=== PATIENT | male | born 1980 | race Caucasian/White ===

== ENCOUNTER 2017-04-30 11:10 | Emergency (ER) | payer SELFPAY ==
--- NOTE | 2017-04-30 11:41 | EDPHYS ---
Physician Documentation [facility] Name: Dany Sanchez Age: 36 yrs Sex: Male : 1980 Arrival Date: 04/30/2017 Time: 11:13 Bed 20 Private MD: ED Physician Mohan Sorto HPI: 04/30 11:36 This 36 yrs old Male presents to ER via Ambulatory with complaints of kb Toothache. 11:36 The patient presents with pain, redness, swelling. The problem is located in the lower kb right third molar (#32) and lower right second molar (#31) and right jaw. Onset: The symptoms/episode began/occurred a few weeks ago. Duration: The symptoms are continuous. Modifying factors: The symptoms are alleviated by nothing, the symptoms are aggravated by nothing. Associated signs and symptoms: Pertinent positives: pain, redness in area, swelling, Pertinent negatives: anorexia, chills, dysphagia, fever, inability to eat, nausea, vomiting. Severity of symptoms: At their worst the symptoms were mild, moderate, in the emergency department the symptoms are unchanged. The patient has not experienced similar symptoms in the past. The patient has not recently seen a physician. Pt states "I've had a toothache and swelling for a few weeks and I can't get into the dentist for a few more weeks. I need something for this." Pt does not have appt with dentist yet. Historical: - Allergies: 11:25 No Known Allergies; aj1 - Home Meds: 11:25 metformin 500 mg Oral TG24 2 times per day [Active]; aj1 - PMHx: 11:25 Diabetes - NIDDM; aj1 - PSHx: 11:25 None; aj1 - Immunization history:: Flu vaccine is not up to date. - Social history:: Smoking status: Patient uses tobacco products, smokes one-half pack cigarettes per day. ROS: 11:33 Constitutional: Negative for fever, chills, and weight loss, Cardiovascular: Negative kb for chest pain, palpitations, and edema, Respiratory: Negative for shortness of breath, cough, wheezing, and pleuritic chest pain, Abdomen/GI: Negative for abdominal pain, nausea, vomiting, diarrhea, and constipation, MS/Extremity: Negative for injury and deformity, Skin: Negative for injury, rash, and discoloration, Neuro: Negative for headache, weakness, numbness, tingling, and seizure. 11:33 ENT: Positive for Gum pain Teeth pain Exam: 11:33 Constitutional: This is a well developed, well nourished patient who is awake, alert, kb and in no acute distress. Head/Face: Normocephalic, atraumatic. Chest/axilla: Normal chest wall appearance and motion. Nontender with no deformity. No lesions are appreciated. Cardiovascular: Regular rate and rhythm with a normal S1 and S2. No gallops, murmurs, or rubs. Normal PMI, no JVD. No pulse deficits. Respiratory: Lungs have equal breath sounds bilaterally, clear to auscultation and percussion. No rales, rhonchi or wheezes noted. No increased work of breathing, no retractions or nasal flaring. Abdomen/GI: Soft, non-tender, with normal bowel sounds. No distension or tympany. No guarding or rebound. No evidence of tenderness throughout. Skin: Warm, dry with normal turgor. Normal color with no rashes, no lesions, and no evidence of cellulitis. MS/ Extremity: Pulses equal, no cyanosis. Neurovascular intact. Full, normal range of motion. Neuro: Awake and alert, GCS 15, oriented to person, place, time, and situation. Cranial nerves II-XII grossly intact. Motor strength 5/5 in all extremities. Sensory grossly intact. Cerebellar exam normal. Normal gait. 11:33 ENT: Dental exam: cellulitis, that is moderate, specifically in the lower right second molar (#31) and lower right third molar (#32). Vital Signs: 11:25 BP 129 / 85; Pulse 93; Resp 18; Temp 97.3; Pulse Ox 97% on R/A; Weight 92.99 kg; Height aj1 5 ft. 11 in. (180.34 cm); Pain 9/10; 12:00 BP 121 / 81; Pulse 85; Resp 18; Pulse Ox 100% on R/A; aj1 11:25 Body Mass Index 28.59 (92.99 kg, 180.34 cm) aj1 MDM: 11:28 Patient medically screened. kb 11:33 Data reviewed: vital signs, nurses notes. Data interpreted: Pulse oximetry: on room air kb is 97 %. Interpretation: normal. 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 Administered Medications: 11:43 Drug: Augmentin 875 mg Route: PO; jl7 12:03 Follow up: Response: No adverse reaction aj1 Disposition: 05/01 10:39 Co-signature as Attending Physician, Mohan Sorto MD I agree with the assessment and xenia plan of care. Disposition: 04/30/17 11:40 Discharged to Home. Impression: Inflammatory conditions of jaws. - Condition is Stable. - Discharge Instructions: Dental Abscess, Dental Pain, [id number]. - Prescriptions for Augmentin 875- 125 mg Oral Tablet - take 1 tablet by ORAL route every 12 hours for 7 days; 14 tablet. - Medication Reconciliation Form, Thank You Letter, Antibiotic Education, Prescription Opioid Use form. - Follow up: Emergency Department; When: As needed; Reason: Worsening of condition. Follow up: Private Physician; When: 2 - 3 days; Reason: Recheck today's complaints, Continuance of care, Re-evaluation by your physician. Signatures: Aaliyah Sandhu, SENIOR PROJECT COORDINATOR-C SENIOR PROJECT COORDINATOR-Dania Johnson, RN RN aj1 Mohan Sorto MD MD cha Leal, Jahala RN RN jl7
--- NOTE | 2017-04-30 11:41 | ER ---
Nurse's Notes [facility] Name: Dany Sanchez Age: 36 yrs Sex: Male : 1980 Arrival Date: 04/30/2017 Time: 11:13 Bed 20 Private MD: Diagnosis: Inflammatory conditions of jaws Presentation: 04/30 11:22 Presenting complaint: Patient states: "Ora had a toothache for the past couple weeks aj1 and I can't get into the dentist for 2 more weeks because they're all booked up. The pain goes up to my jaw and ear I've taken BC powder, nothing helps" Swelling noted to right cheek. Patient denies fever, chills. Transition of care: patient was not received from another setting of care. Onset of symptoms was April 16, 2017. Care prior to arrival: None. 11:22 Method Of Arrival: Ambulatory aj1 11:22 Acuity: DARIN 4 aj1 Triage Assessment: 11:25 General: Appears in no apparent distress. uncomfortable, Behavior is calm, cooperative, aj1 appropriate for age. Pain: Complains of pain in right jaw Pain radiates to right ear Pain currently is 9 out of 10 on a pain scale. Quality of pain is described as sharp, shooting, stabbing, Pain began 2 weeks ago Is continuous, Alleviated by nothing. EENT: Reports pain in right jaw. Historical: - Allergies: 11:25 No Known Allergies; aj1 - Home Meds: 11:25 metformin 500 mg Oral TG24 2 times per day [Active]; aj1 - PMHx: 11:25 Diabetes - NIDDM; aj1 - PSHx: 11:25 None; aj1 - Immunization history:: Flu vaccine is not up to date. - Social history:: Smoking status: Patient uses tobacco products, smokes one-half pack cigarettes per day. Screenin:30 Abuse screen: Denies threats or abuse. Denies injuries from another. Nutritional aj1 screening: No deficits noted. Tuberculosis screening: No symptoms or risk factors identified. Fall Risk None identified. Assessment: 11:30 General: Appears in no apparent distress. uncomfortable, Behavior is calm, cooperative, aj1 appropriate for age. Pain: Complains of pain in right jaw Pain does not radiate. Pain currently is 9 out of 10 on a pain scale. Neuro: Level of Consciousness is awake, alert, obeys commands, Oriented to person, place, time, situation, Speech is normal. Cardiovascular: Patient's skin is warm and dry. Respiratory: Airway is patent Respiratory effort is even, unlabored, Respiratory pattern is regular, symmetrical. GI: No signs and/or symptoms were reported involving the gastrointestinal system. : No signs and/or symptoms were reported regarding the genitourinary system. EENT: No signs and/or symptoms were reported regarding the EENT system. Derm: No signs and/or symptoms reported regarding the dermatologic system. Skin is pink, warm \\T\\ dry. normal. Musculoskeletal: No signs and/or symptoms reported regarding the musculoskeletal system. Circulation, motion, and sensation intact. Vital Signs: 11:25 BP 129 / 85; Pulse 93; Resp 18; Temp 97.3; Pulse Ox 97% on R/A; Weight 92.99 kg; Height aj1 5 ft. 11 in. (180.34 cm); Pain 9/10; 12:00 BP 121 / 81; Pulse 85; Resp 18; Pulse Ox 100% on R/A; aj1 11:25 Body Mass Index 28.59 (92.99 kg, 180.34 cm) aj1 ED Course: 11:13 Patient arrived in ED. mr 11:18 Dania Xie, RN is Primary Nurse. aj1 11:23 Triage completed. aj1 11:25 Arm band placed on. aj1 11:28 Aaliyah Sandhu FNP-C [facility]. kb 11:28 Mohan Sorto MD is Attending Physician. kb 11:30 Patient has correct armband on for positive identification. aj1 11:30 No provider procedures requiring assistance completed. Patient did not have IV access aj1 during this emergency room visit. Administered Medications: 11:43 Drug: Augmentin 875 mg Route: PO; jl7 12:03 Follow up: Response: No adverse reaction aj1 Outcome: 11:40 Discharge ordered by . kb 12:02 Discharged to home ambulatory. aj1 12:02 Condition: good 12:02 Discharge instructions given to patient, Instructed on discharge instructions, follow up and referral plans. medication usage, Demonstrated understanding of instructions, follow-up care, medications, Prescriptions given X 2. 12:03 Patient left the ED. aj1 Signatures: Aaliyah Sandhu FNP-C RESEARCH MANUFACTURING OPERATOR-Dania Johnson, RN RN aj1 Simin Melendez mr Eduardo Foster, RN RN jl7
[2017-04-30] MEDS ORDERED: AMOX/K CLAV 875 MG TAB ONE (12:00)
[2017-04-30 12:07] VITALS: TEMP 97.3
[2017-04-30 12:09] VITALS: BP 121/81; O2SAT 100
== END 2017-04-30 12:03 | disposition home or self-care (01) ==
LOC: ER 11:10
DX: M27.2 Inflammatory conditions of jaws (principal); E11.9 Type 2 diabetes mellitus without complications; F17.210 Nicotine dependence, cigarettes, uncomplicated
CPT/HCPCS: 99283

== ENCOUNTER 2017-05-10 13:22 | Observation (INO) | payer SELFPAY ==
[2017-05-10] MEDS ORDERED: MORPHINE 4 MG/ML SYR ONE (14:49)
[2017-05-10] MEDS ORDERED: ONDANSETRON 4 MG/2 ML VIAL ONE (14:49)
[2017-05-10] MEDS ORDERED: VANCOMYCIN/NS 1 gm 1 GM/250 ML BAG ONE (14:49)
[2017-05-10] MEDS ORDERED: PIPER/TAZO/NS 3.375gm 3.375 GM/100 ML BAG ONE (14:50)
[2017-05-10] MEDS ORDERED: NA CHLORIDE 0.9% 1,000 ML ONE (14:50)
[2017-05-10 15:22] LABS: Absolute Lymphocytes (CBC) 1.9 K/uL (0.7-4.9); Absolute Monocytes 0.8 K/uL (0.1-1.3); Basophils % 0.6 % (0-1.3); Eosinophils % 2.4 % (0-4.4); Hematocrit 45.5 % (39.6-49.0); Lymphocytes % 17.4 % (15.3-44.8); MCH 30.8 pg (27.0-35.0); MCV 91.1 fL (80-100); MPV 9.2 fL (7.6-11.3); Monocytes % 6.9 % (3.3-12.3); RBC Red Blood Cell Count 4.99 M/uL (4.33-5.43)
--- NOTE | 2017-05-10 15:44 | EDPHYS ---
Physician Documentation [facility] Name: Dany Sanchez Age: 36 yrs Sex: Male : 1980 Arrival Date: 05/10/2017 Time: 13:24 Bed 28 Private MD: ED Physician Mohan Sorto HPI: 05/10 14:16 This 36 yrs old Male presents to ER via Ambulatory with complaints of Boil. xenia 14:16 The patient presents with an abscess of the left axilla. The patient presents with xenia cellulitis of the left axilla. Description: The affected area is small, moderate sized. Onset: The symptoms/episode began/occurred 2 day(s) ago. Possible cause(s): unknown. Associated signs and symptoms: Pertinent positives: erythema, swelling. Modifying factors: the symptoms are alleviated by remaining still, the symptoms are aggravated by pressure. Severity of symptoms: At their worst the symptoms were moderate. The patient has experienced similar episodes in the past, a few times. Historical: - Allergies: 13:44 No Known Allergies; hb - Home Meds: 13:44 metformin 500 mg Oral TG24 2 times per day [Active]; hb - PMHx: 13:44 Diabetes - NIDDM; hb - PSHx: 13:44 None; hb - Immunization history:: Adult Immunizations up to date. - Social history:: Smoking status: Patient uses tobacco products, smokes one-half pack cigarettes per day. - Family history:: not pertinent. ROS: 14:16 Constitutional: Negative for fever, chills, and weight loss, Eyes: Negative for injury, xenia pain, redness, and discharge, ENT: Negative for injury, pain, and discharge, Neck: Negative for injury, pain, and swelling, Cardiovascular: Negative for chest pain, palpitations, and edema, Respiratory: Negative for shortness of breath, cough, wheezing, and pleuritic chest pain, Abdomen/GI: Negative for abdominal pain, nausea, vomiting, diarrhea, and constipation, Back: Negative for injury and pain, : Negative for injury, bleeding, discharge, and swelling, MS/Extremity: Negative for injury and deformity, Neuro: Negative for headache, weakness, numbness, tingling, and seizure, Psych: Negative for depression, anxiety, suicide ideation, homicidal ideation, and hallucinations, Allergy/Immunology: Negative for hives, rash, and allergies, Endocrine: Negative for neck swelling, polydipsia, polyuria, polyphagia, and marked weight changes, Hematologic/Lymphatic: Negative for swollen nodes, abnormal bleeding, and unusual bruising. 14:16 Skin: Positive for abscess, cellulitis, of the left axilla. Exam: 14:16 Constitutional: This is a well developed, well nourished patient who is awake, alert, xenia and in no acute distress. Head/Face: Normocephalic, atraumatic. Eyes: Pupils equal round and reactive to light, extra-ocular motions intact. Lids and lashes normal. Conjunctiva and sclera are non-icteric and not injected. Cornea within normal limits. Periorbital areas with no swelling, redness, or edema. ENT: Nares patent. No nasal discharge, no septal abnormalities noted. Tympanic membranes are normal and external auditory canals are clear. Oropharynx with no redness, swelling, or masses, exudates, or evidence of obstruction, uvula midline. Mucous membranes moist. Neck: Trachea midline, no thyromegaly or masses palpated, and no cervical lymphadenopathy. Supple, full range of motion without nuchal rigidity, or vertebral point tenderness. No Meningismus. Chest/axilla: Normal chest wall appearance and motion. Nontender with no deformity. No lesions are appreciated. Cardiovascular: Regular rate and rhythm with a normal S1 and S2. No gallops, murmurs, or rubs. Normal PMI, no JVD. No pulse deficits. Respiratory: Lungs have equal breath sounds bilaterally, clear to auscultation and percussion. No rales, rhonchi or wheezes noted. No increased work of breathing, no retractions or nasal flaring. Abdomen/GI: Soft, non-tender, with normal bowel sounds. No distension or tympany. No guarding or rebound. No evidence of tenderness throughout. Back: No spinal tenderness. No costovertebral tenderness. Full range of motion. Male : Normal genitalia with no discharge or lesions. Skin: Warm, dry with normal turgor. Normal color with no rashes, no lesions, and no evidence of cellulitis. Neuro: Awake and alert, GCS 15, oriented to person, place, time, and situation. Cranial nerves II-XII grossly intact. Motor strength 5/5 in all extremities. Sensory grossly intact. Cerebellar exam normal. Normal gait. Psych: Awake, alert, with orientation to person, place and time. Behavior, mood, and affect are within normal limits. 14:16 Musculoskeletal/extremity: ROM: full passive range of motion, limited active range of motion, Circulation is intact in all extremities. Sensation intact. Compartment Syndrome exam of affected extremity: is normal. DVT Exam: negative Homans' sign noted on exam, no appreciated bluish discoloration, pain, swelling, tenderness, erythema, increased warmth, that is moderate, of the left axilla. Vital Signs: 13:43 BP 126 / 75; Pulse 99; Resp 18; Temp 99.4; Pulse Ox 100% on R/A; Weight 93.44 kg; hb Height 5 ft. 11 in. (180.34 cm); Pain 7/10; 15:00 BP 122 / 82; Pulse 85; Resp 15; Pulse Ox 100% on R/A; lk1 16:00 BP 120 / 82; Pulse 71; Resp 16; Pulse Ox 100% on R/A; lk1 17:00 BP 129 / 62; Pulse 77; Resp 15; Pulse Ox 100% on R/A; lk1 13:43 Body Mass Index 28.73 (93.44 kg, 180.34 cm) hb MDM: 14:01 Patient medically screened. [facility] 14:19 Data reviewed: vital signs, nurses notes, lab test result(s), radiologic studies, xenia ultrasound. 05/10 14:15 Order name: CBC with Diff [facility] 05/10 14:15 Order name: Comprehensive Metabolic Panel [facility] 05/10 14:24 Order name: CBC with Automated Diff; Complete Time: 15:38 [facility] 05/10 14:24 Order name: Comprehensive Metabolic Panel; Complete Time: 16:41 [facility] 05/10 16:08 Order name: Basic Metabolic Panel [facility] 05/10 16:08 Order name: Basic Metabolic Panel [facility] 05/10 16:08 Order name: Basic Metabolic Panel [facility] 05/10 16:08 Order name: Basic Metabolic Panel [facility] 05/10 16:08 Order name: CBC with Automated Diff [facility] 05/10 16:08 Order name: CBC with Automated Diff [facility] 05/10 16:08 Order name: CBC with Automated Diff [facility] 05/10 16:08 Order name: CBC with Automated Diff [facility] 05/10 16:09 Order name: Blood Culture [facility] 05/10 14:24 Order name: Extremity Nonvascular Limited [facility] 05/10 15:28 Order name: Labs - recollect needed; Complete Time: 15:50 ss 05/10 15:47 Order name: CONS Physician Consult ED[facility] 05/10 16:08 Order name: CONS Pharmacy Consult ED[facility] 05/10 16:08 Order name: NPO ED[facility] 05/10 17:16 Order name: Diet Regular; Complete Time: 17:17 bd Administered Medications: 15:10 Drug: Zofran 4 mg Route: IVP; Site: left antecubital; lk1 15:40 Follow up: Response: No adverse reaction; Marked relief of symptoms; Nausea is decreasedlk1 15:10 Drug: NS 0.9% 1000 ml Route: IV; Rate: 1 bolus; Site: left antecubital; lk1 16:00 Follow up: Response: No adverse reaction; IV Status: Completed infusion lk1 15:12 Drug: morphine 2 mg Route: IVP; Site: left antecubital; lk1 15:40 Follow up: Response: No adverse reaction; Marked relief of symptoms; Pain is decreased lk1 15:14 Drug: Zosyn 3.375 grams Route: IVPB; Infused Over: 60 mins; Site: left antecubital; lk1 16:10 Follow up: Response: No adverse reaction; IV Status: Completed infusion lk1 15:41 Drug: vancoMYCIN 1 grams Route: IVPB; Infused Over: 2 hrs; Site: left antecubital; lk1 18:08 Follow up: Response: No adverse reaction; IV Status: Infusion continued upon admission lk1 Disposition: 05/10/17 15:44 Hospitalization ordered by Karishma Collier for Observation. Preliminary diagnosis are Cutaneous abscess of left axilla, Type 2 diabetes mellitus, Fever, unspecified. - Bed requested for Telemetry/MedSurg (observation). - Status is Observation. lk1 - Condition is Stable. - Problem is new. - Symptoms have improved. UTI on Admission? No Signatures: Dispatcher [employer] [facility] Mary Ann Francis Corey, MD MD cha Smirch, Shelby, RN RN ss Yessy Pedroza RN RN lk1 Ashley Shah RN RN Corrections: (The following items were deleted from the chart) 16:07 16:04 Extrmty Nonvasular Limited+US.RAD.BRZ ordered. EDMS EDMS
--- NOTE | 2017-05-10 15:44 | ER ---
Nurse's Notes [facility] Name: Dany Sanchez Age: 36 yrs Sex: Male : 1980 Arrival Date: 05/10/2017 Time: 13:24 Bed 28 Private MD: Diagnosis: Cutaneous abscess of left axilla;Type 2 diabetes mellitus;Fever, unspecified Presentation: 05/10 13:42 Presenting complaint: Patient states: Painful boil under left arm x 1 week. Transition hb of care: patient was not received from another setting of care. Onset of symptoms is unknown. Care prior to arrival: None. 13:42 Method Of Arrival: Ambulatory hb 13:42 Acuity: DARIN 3 hb Historical: - Allergies: 13:44 No Known Allergies; hb - Home Meds: 13:44 metformin 500 mg Oral TG24 2 times per day [Active]; hb - PMHx: 13:44 Diabetes - NIDDM; hb - PSHx: 13:44 None; hb - Immunization history:: Adult Immunizations up to date. - Social history:: Smoking status: Patient uses tobacco products, smokes one-half pack cigarettes per day. - Family history:: not pertinent. Screenin:50 Abuse screen: Denies threats or abuse. Denies injuries from another. Nutritional lk1 screening: No deficits noted. Tuberculosis screening: No symptoms or risk factors identified. Fall Risk None identified. Assessment: 15:00 General: Appears in no apparent distress. Behavior is calm, cooperative, appropriate lk1 for age. Pain: Complains of pain in left axilla Pain currently is 7 out of 10 on a pain scale. Neuro: Level of Consciousness is awake, alert, obeys commands, Oriented to person, place, time, situation. Cardiovascular: Capillary refill is brisk Patient's skin is warm and dry. Respiratory: Airway is patent Respiratory effort is even, unlabored, Respiratory pattern is regular, symmetrical. GI: Abdomen is non-distended. : No signs and/or symptoms were reported regarding the genitourinary system. EENT: No signs and/or symptoms were reported regarding the EENT system. Derm: Skin is pink, warm \T\ dry. Wound noted left axilla Wound is redness and swelling noted to left axilla with no central point seen. No drainage noted. Musculoskeletal: No signs and/or symptoms reported regarding the musculoskeletal system. Vital Signs: 13:43 BP 126 / 75; Pulse 99; Resp 18; Temp 99.4; Pulse Ox 100% on R/A; Weight 93.44 kg; hb Height 5 ft. 11 in. (180.34 cm); Pain 7/10; 15:00 BP 122 / 82; Pulse 85; Resp 15; Pulse Ox 100% on R/A; lk1 16:00 BP 120 / 82; Pulse 71; Resp 16; Pulse Ox 100% on R/A; lk1 17:00 BP 129 / 62; Pulse 77; Resp 15; Pulse Ox 100% on R/A; lk1 13:43 Body Mass Index 28.73 (93.44 kg, 180.34 cm) hb ED Course: 13:24 Patient arrived in ED. as 13:43 Triage completed. hb 13:44 Arm band placed on right wrist. hb 14:01 Mohan Sorto MD is Attending Physician. xenia 14:16 Yessy Pedroza, BERTIN is Primary Nurse. lk1 14:32 Patient taken to ultrasound. via wheelchair. hr 14:42 Extremity Nonvascular Limited In Process Unspecified. EDMS 15:00 Patient has correct armband on for positive identification. Bed in low position. Call lk1 light in reach. Adult w/ patient. 15:09 Initial lab(s) drawn, by me, sent to lab. Missed attempt(s): 20 gauge in right dh3 antecubital area. Bleeding controlled, band aid applied, catheter tip intact. Missed attempt(s): 20 gauge in right antecubital area. Bleeding controlled, band aid applied, catheter tip intact. 15:23 First set of blood cultures drawn by venipuncture 23G to left hand by me. 3 15:42 Karishma Collier MD is Hospitalizing Provider. xenia 17:40 Second set of blood cultures drawn. lk1 18:12 No provider procedures requiring assistance completed. Patient admitted, IV remains in lk1 place. Administered Medications: 15:10 Drug: Zofran 4 mg Route: IVP; Site: left antecubital; lk1 15:40 Follow up: Response: No adverse reaction; Marked relief of symptoms; Nausea is decreasedlk1 15:10 Drug: NS 0.9% 1000 ml Route: IV; Rate: 1 bolus; Site: left antecubital; lk1 16:00 Follow up: Response: No adverse reaction; IV Status: Completed infusion lk1 15:12 Drug: morphine 2 mg Route: IVP; Site: left antecubital; lk1 15:40 Follow up: Response: No adverse reaction; Marked relief of symptoms; Pain is decreased lk1 15:14 Drug: Zosyn 3.375 grams Route: IVPB; Infused Over: 60 mins; Site: left antecubital; lk1 16:10 Follow up: Response: No adverse reaction; IV Status: Completed infusion lk1 15:41 Drug: vancoMYCIN 1 grams Route: IVPB; Infused Over: 2 hrs; Site: left antecubital; lk1 18:08 Follow up: Response: No adverse reaction; IV Status: Infusion continued upon admission lk1 Outcome: 15:44 Decision to Hospitalize by Provider. [facility] 18:11 Admitted to Med/surg accompanied by tech, via wheelchair, room 219, with chart. [facility] 18:11 Condition: stable 18:11 Discharge instructions given to patient, Instructed on the need for admit, Demonstrated understanding of instructions. 18:13 Patient left the ED. 1 Signatures: Dispatcher [employer] EDMS Mohan Sorto MD MD cha Rod, Haley hr Martinez, Amelia as Kluge, Leah, RN RN [facility] Ashley Shah RN RN Agnes Patton 3 Corrections: (The following items were deleted from the chart) 15:18 13:14 Zosyn 3.375 grams IVPB in left antecubital over 60 mins [facility] lk1 15:19 13:12 morphine 2 mg IVP in left antecubital [place] [address] 15:20 13:10 NS 0.9% 1000 ml IV at 1 bolus in left antecubital [place] [address] 15:20 13:10 Zofran 4 mg IVP in left antecubital [place] [address]
[2017-05-10 15:50] LABS: Potassium 4.3 mEq/L (3.6-5.0)
[2017-05-10 15:54] LABS: Albumin 3.8 g/dL (3.2-5.5); Bilirubin Total 0.4 mg/dL (0.3-1.2); Protein, Total 6.7 g/dL (6.0-8.3)
[2017-05-10] MEDS ORDERED: ACETAMINOPHEN 500 MG TAB PO PRN (16:04)
[2017-05-10] MEDS ORDERED: ONDANSETRON 4 MG/2 ML VIAL IV PRN (16:04)
[2017-05-10] MEDS ORDERED: HYDROCODONE/APAP 7.5/325 MG TAB PO PRN (16:04)
[2017-05-10] MEDS: PIPER/TAZO/NS 3.375gm 3.375 GM/100 ML BAG IVPB SCH (17:00)
[2017-05-10] MEDS ORDERED: D50W 25 GM/50 ML SYRINGE IV PRN (17:03)
[2017-05-10] MEDS ORDERED: GLUCAGON 1 MG/VIAL IM PRN (17:03)
--- NOTE | 2017-05-10 17:36 | RAD REPORT ---
EXAM DESCRIPTION: US - Extremity Nonvascular Limited - 05/10/2017 2:42 pm CLINICAL HISTORY: Left axillary mass COMPARISON: None FINDINGS: A 3.6 x 1.9 x 2.7 centimeter fluid collection is present within the left axilla. IMPRESSION: 3.6 centimeter fluid collection within the left axilla may represent an abscess
[2017-05-10 19:02] VITALS: BMI 28.7
[2017-05-10] MEDS: VANCOMYCIN/NS 1 gm 1 GM/250 ML BAG IV SCH (19:37)
[2017-05-10] MEDS: NA CHLORIDE 0.9% 1,000 ML IV SCH (19:44)
[2017-05-10] MEDS: INSULIN -REGULAR HUMAN 50 UNIT/0.5 ML ML SQ SCH (20:39)
[2017-05-10] MEDS ORDERED: INFLUENZA VACCINE (for 3y+) 0.5 ML DOSE IMVAC ONE (21:00)
[2017-05-10 22:06] LABS: Urine Appearance CLEAR; Urine Bilirubin NEGATIVE (NEG); Urine Blood NEGATIVE (NEG); Urine Color YELLOW; Urine Glucose 3+ (NEG); Urine Protein NEGATIVE (NEG); Urine Specific Gravity >=1.030 (1.005-1.030); Urine pH 6.5 (5.0-7.0)
[2017-05-10 22:07] LABS: Urine Microscopic Reflex NO UMIC
[2017-05-10 22:39] VITALS: O2SAT 100
[2017-05-11] MEDS: PIPER/TAZO/NS 3.375gm 3.375 GM/100 ML BAG IVPB SCH ×2 (01:02→11:49)
[2017-05-11] MEDS: NA CHLORIDE 0.9% 1,000 ML IV SCH (03:34)
--- NOTE | 2017-05-11 04:22 | HP ---
Date of Admission: 05/10/2017 Code Status: Full. Chief Complaint: Abscess on the left axilla. Consultants: Dr. Smith, General Surgery. History Of Present Illness: The patient is a 36-year-old male with past medical history of diabetes, who has been noncompliant with his medications, who comes in with recurrent abscess underneath his l eft axilla. He reports swelling and pain; however, no drainage over the past few days. Denies any i nsect bites, cuts, or other trauma. The patient has had previous surgery at that site in [place] . The patient's symptoms are constant, moderate, and progressively worsening. The patient denies an y fevers or chills. The patient also reports recent boil on his right groin that has been oozing. O f note, the patient has not been on his metformin for over a week. He did borrow some of his friend' s metformin. He states that his blood sugars run around the 150s. The patient came into the ER for further evaluation. His workup revealed a blood glucose level of 183. His white count was 11. The patient was then referred for admission for axilla abscess. Dr. Smith was consulted by the ER. Past Medical History: Diabetes. Past Surgical History: Left axilla abscess drainage. Allergies: NO KNOWN DRUG ALLERGIES. Medications: Currently not taking any medications, has been on metformin in the past. Social History: The patient smokes 1 pack per day, has been smoking for the past several years. Drde nks alcohol socially. No illicit drug use. Family History: Positive for diabetes in the grandmother and uncle. Review of Systems: An 11-point system reviewed, negative except as per HPI. Physical Examination: Vital Signs: Temperature 99.4, heart rate 99, blood pressure 126/75, respirations 18, O2 100% on ramona m air. General: Awake, alert, oriented x3, not in any acute distress. HEENT: Normocephalic, atraumatic. PERRLA. EOMI. Moist mucous membranes. Oropharynx is clear. Co njunctivae anicteric. Neck: Supple. No JVD. Trachea midline. CV: S1, S2. No murmurs. Regular rate and rhythm. Peripheral pulses are present bilaterally. Respiratory: Clear to auscultation bilaterally. No wheezing. No stridor. No use of accessory musc les. Gastrointestinal: Abdomen is soft, nontender, nondistended. Positive bowel sounds. No guarding or rigidity. Extremities: No clubbing, cyanosis, or edema. No calf tenderness. Skin: The patient has tender mobile induration in the left axilla. No apparent drainage. Healed raymond rgical scar is present. Neuro: Cranial nerves 2 through 12 intact grossly. No focal neurological deficit. Strength is 5/5 in bilateral upper and lower extremities. Sensation is intact to light touch. Psych: Mood is okay. Affect is full. Insight and judgment are good. Laboratory Data: WBC 11, H and H 15.4 and 45.5, platelets 196, neutrophils 72.7%. Sodium 139, potas sium 4.3, chloride 103, CO2 29, BUN 12, creatinine 0.94, glucose 183, calcium 9.2. Upper extremity u ltrasound pending. Assessment And Plan: A 36-year-old male with; 1.Left axilla abscess. We will continue on broad-spectrum IV antibiotics. Obtain blood cultures. Dr. Smith with Surgery has been consulted. We will likely need I and D in a.m. 2.Right groin abscess. We will obtain wound culture and continue IV antibiotics. 3.Diabetes mellitus type 2 with hyperglycemia without long-term use of insulin. We will check hemog lobin A1c. The patient has not been on his metformin. 4.Noncompliance. 5.GI and DVT prophylaxis with PPI and SCDs. No chemical anticoagulation secondary to impending proc edure. 6.Nicotine dependence with cigarette smoking, uncomplicated. Counseled. Plan: Admit the patient to [facility] as observation. DORIS Voice ID: [id number]
[2017-05-11 05:42] LABS: Absolute Monocytes 0.8 K/uL (0.1-1.3); Absolute Neutrophil 5.1 K/uL (1.8-8.0); Basophils % 0.4 % (0-1.3); Eosinophils % 2.3 % (0-4.4); Hematocrit 42.5 % (39.6-49.0); MCH 30.6 pg (27.0-35.0); MCV 93.8 fL (80-100); MPV 8.1 fL (7.6-11.3); Monocytes % 8.9 % (3.3-12.3); RBC Red Blood Cell Count 4.53 M/uL (4.33-5.43)
[2017-05-11 05:52] LABS: BUN Blood Urea Nitrogen 14 mg/dL (6-20); Bicarbonate 29 mEq/L (21-31); Glomerular Filtration Rate > 90 mL/min (=/>90); Glucose Level 141 mg/dL (65-120); Potassium 4.3 mEq/L (3.6-5.0); Sodium Level 141 mEq/L (135-145)
[2017-05-11] MEDS: INSULIN -REGULAR HUMAN 50 UNIT/0.5 ML ML SQ SCH ×2 (07:30→11:30)
[2017-05-11] MEDS ORDERED: BUPIVACAINE 0.5% PF 10 ML VIAL ONE (07:49)
[2017-05-11] MEDS: VANCOMYCIN/NS 1 gm 1 GM/250 ML BAG IV SCH (08:23)
[2017-05-11 09:19] LABS: A1c Component 0.58 mg/dL; Hemoglobin A1c 5.7 % (4-6.0)
[2017-05-11] MEDS ORDERED: MIDAZOLAM HCL 2 MG/2 ML INJ ONE (09:22)
[2017-05-11] MEDS ORDERED: FENTANYL CITR 100 MCG/2 ML ONE ×2 (09:26→09:43)
[2017-05-11] MEDS ORDERED: LIDOCAINE 2% MPF 5 ML VIAL ONE (09:27)
[2017-05-11] MEDS ORDERED: PROPOFOL 200 MG/20 ML VIAL IV ONE (09:27)
--- NOTE | 2017-05-11 09:34 | P.OP ---
Preoperative diagnosis: Abscess Left Axilla Postoperative diagnosis: same Primary procedure: I and D and Debridement Left Axillary Abscess Anesthesia: General Estimated blood loss: min Specimen: pus Findings: as above Complications: None Transferred to: Recovery Room Condition: Good
[2017-05-11] MEDS ORDERED: CHLORHEXIDINE GLUCO 4% 120 ML TOP SCH (10:11)
--- NOTE | 2017-05-11 12:07 | PREOPCON ---
Date of Consultation: 05/10/2017 Reason For Consultation: Infection of left axilla. History Of Present Illness: The patient is a 36-year-old gentleman, who has uncontrollable diabetes and he has had recurrent infections throughout his body. He also had 1 in his left axilla several ye ars ago which was incised and drained. He complaint of swelling and increasing pain in the left axil la. Denies any history of trauma, bites, cut. He does have issues with an ingrown hair. Denies any fever or chills subjectively. No drainage at this time, just increasing pain. He had an ultrasound done, which was confirmed an abscess in his left axilla and I was consulted. Past Medical History: Significant for type 2 diabetes. Past Surgical History: Incision and drainage of a left axillary abscess. Allergies: NO ALLERGIES. Social History: The patient smokes 1 pack per day. Has been smoking for several years. Drinks alco hol occasionally. Family History: Significant for diabetes. Physical Examination: Vital Signs: Stable. He is afebrile. General: He is awake, alert, oriented x3. Head and neck: Cranial nerves 2 through 12 are grossly within normal limits. No neck masses. No JV D. Throat clear. Neck supple. Chest: Clear. Heart: S1 and S2. Abdomen: Soft. Extremities: Neurovascularly intact. Neuro: Nonfocal. Left axilla, there is approximately a 4 x 6 cm area of tender mass, central fluctu ance, and feels fairly deep. Laboratory Data: White count was 11,000 on admission. Chemistry reviewed glucose is 141. Assessment: Left axillary abscess. Recommendations: N.p.o. IV fluid, IV antibiotic, to the OR for incision and drainage, and debridemen t of left axillary abscess. The patient understands the risks, benefits, and alternatives and agrees to procedure. /MODL Voice ID: [id number] Report ID: [id number]
[2017-05-11 17:31] VITALS: BP 140/84; TEMP 98.6
--- NOTE | 2017-05-11 17:32 | PN ---
Date of Progress Note: 05/11/2017 The patient seen and examined. Chart reviewed and case discussed with RN and Dr. Smith. History: The patient tolerated I and D procedure well this morning. No other complaints. Review of Systems: Negative except as above. Medications: Reviewed. Physical Examination: Vital Signs: Temperature 98.6, heart rate 77, blood pressure 111/74, respirations 16, O2 100% on ramona m air. General: Awake, alert, oriented x3. No acute distress. CV: S1, S2. No murmurs. Regular rate and rhythm. Peripheral pulses are present. Respiratory: Clear to auscultation bilaterally. No wheezing. No stridor. No use of accessory musc les. Gastrointestinal: Abdomen is soft, nontender, nondistended. Positive bowel sounds. Extremities: No clubbing, cyanosis, or edema. Neurologic: Nonfocal. Skin: Left axilla bandaged. No erythema or drainage. Laboratory Data: Sodium 141, potassium 4.3, chloride 108, CO2 29, BUN 14, creatinine 0.83, glucose 1 41, calcium 8.7. WBC 9.2. H and H 13.9 and 42.5, platelets 219, neutrophils 55%. Blood cultures pe nding. Wound cultures also pending. Assessment And Plan: A 36-year-old male with: 1.Left axilla abscess. We will continue on broad-spectrum IV antibiotics. Follow up on cultures. The patient is status post I and D. Appreciate Dr. Smith's input. 2.Right groin abscess. Continue antibiotics. Cultures pending. 3.Diabetes mellitus type 2 with hyperglycemia with long-term use of insulin. We will continue slidi ng scale insulin. Hemoglobin A1c is 5.7%. 4.Noncompliance. 5.Nicotine dependence with cigarette smoking, uncomplicated, counseled. 6.Gastrointestinal and deep venous thrombosis prophylaxis with PPI and SCDs due to recent surgery. Plan: Likely discharge in a.m. Follow up on cultures. /SHIRA Voice ID: [id number] Report ID: [id number]
[2017-05-11] MEDS ORDERED: MUPIROCIN 2% OINT 22GM TUBE TOP SCH (21:00)
[2017-05-11] MEDS ORDERED: VANCOMYCIN 1.75 GM in NA CHLORIDE 0.9% 500 ML IVPB SCH (21:00)
--- NOTE | 2017-05-12 02:24 | OP ---
Date of Procedure: 05/11/2017 Surgeon: Jerry Smith MD Preoperative Diagnosis: Left axillary abscess. Postoperative Diagnosis: Left axillary abscess. Procedure: Incision and drainage and debridement of left axillary abscess. Estimated Blood Loss: Minimal. Specimen: Pus. Findings: As above. Anesthesia: General. Complications: None. Disposition: The patient tolerated the procedure well in stable condition and taken to Recovery in g ood general condition. Procedure In Detail: The patient was brought to the OR and placed in supine position. General anest hesia was begun. The patient was prepped and draped in the usual sterile fashion. Marcaine 0.5% was infiltrated locally. Then, a #15 blade was used to make approximately a 3-cm incision. Subcutaneou s tissue divided. Deep to subcutaneous tissue, an abscess identified. Open cultures done. Wound ir rigated. Bleeding controlled with cautery. Necrotic tissue debrided. Wound irrigated again and the n wet-to-dry normal saline dressing change applied. The patient tolerated the procedure in stable condition and taken to Recovery in good gener al condition. /MODL Voice ID: [id number] Report ID: [id number]
--- NOTE | 2017-05-12 15:09 | DS ---
Date of Discharge: 05/11/2017 Technician Automated Equipment: Dr. Smith. Procedure: On 05/11/2017, I and D of left axillary abscess. Admitting Diagnoses: 1.Left axillary abscess. 2.Right groin abscess. 3.Diabetes mellitus type 2 with hyperglycemia without long-term use of insulin. 4.Noncompliance. 5.Nicotine dependence with cigarette smoking, uncomplicated. Discharge Diagnoses: 1.Left axillary abscess status post incision and drainage. 2.Right groin abscess, resolving. 3.Diabetes mellitus type 2 with hyperglycemia without long-term use of insulin. 4.Noncompliance. 5.Nicotine dependence with cigarette smoking, uncomplicated. Hospital Course: The patient is a 36-year-old male, who has not been taking his medications for his diabetes, comes in with abscess of his left axilla. The patient has had previous abscess in the same area drained in the past. The patient reports pain. His white count was mildly elevated. The salazar ent was started on IV antibiotics. Dr. Smith with Surgery was consulted. The patient had an I and D done and tolerated procedure well. The patient was counseled against cigarette smoking. He underst ands it delays healing. He was also counseled on being compliant with his medications. He stated th at he has been out of his medication. Refills were provided for his metformin. The patient's white count improved. His wound cultures were pending. The patient was then cleared for discharge from raymond rgical standpoint. The patient was discharged home in a stable condition. Activity: As tolerated. Medications: As per medication reconciliation list. Followup: Follow up with Dr. Smith, surgeon, next . Return to ER for worsening condition. Establish care with primary care physician. Monitor blood glucose levels. Diet: Diabetic. Discharge Instructions: No driving or operating heavy machinery while on narcotics. For physical exam findings, please see progress note dictated on the day of discharge. SA/MODL Voice ID: [id number] Report ID: [id number]
== END 2017-05-11 16:58 | disposition home or self-care (01) ==
LOC: ER 13:22 → ERHOLD 15:43 → 2ND 17:54
PROVIDERS: ADMIT Family Medicine; ATTEND Family Medicine
PROC: 0J9F0ZZ Drainage of Left Upper Arm Subcutaneous Tissue and Fascia, Open Approach (ICD-10-PCS; principal; 2017-05-11 08:30)
DX: L02.412 Cutaneous abscess of left axilla (principal); L02.214 Cutaneous abscess of groin; E11.65 Type 2 diabetes mellitus with hyperglycemia; Z79.4 Long term (current) use of insulin; Z91.14 Patient's other noncompliance with medication regimen; F17.210 Nicotine dependence, cigarettes, uncomplicated
CPT/HCPCS: 36415; 76882; 80048; 80053; 81003; 82962; 83036; 85025; 87040; 87070; 87075; 87077; 87186; 87205; 94760; 96365; 96366; 96368; 96375; 99285; G0378; J2250; J2405; J2543; J3010; J3370; J7030

== ENCOUNTER 2017-08-01 15:16 | Emergency (ER) | payer SELFPAY ==
--- NOTE | 2017-08-01 15:48 | ER ---
Nurse's Notes [facility] Name: Dany Sanchez Age: 36 yrs Sex: Male : 1980 Arrival Date: 08/01/2017 Time: 15:21 Bed 30 Private MD: None, None Diagnosis: Diabetes mellitus due to underlying condition with hyperglycemia Presentation: 08/01 15:36 Presenting complaint: Patient states: "My blood sugar was like 321 today and I took my aa5 last Metformin pill today so I just need a refill because I'm not from here". Pt denies any symptoms. Transition of care: patient was not received from another setting of care. Onset of symptoms was August 01, 2017. Risk Assessment: Do you want to hurt yourself or someone else? Patient reports no desire to harm self or others. Initial Sepsis Screen: Does the patient meet any 2 criteria? No. Patient's initial sepsis screen is negative. Does the patient have a suspected source of infection? No. Patient's initial sepsis screen is negative. Care prior to arrival: None. 15:36 Method Of Arrival: Ambulatory aa5 15:36 Acuity: DARIN 5 aa5 Triage Assessment: 15:40 General: Appears in no apparent distress. well groomed, well developed, well nourished, rk2 Behavior is calm, cooperative. 15:40 Pain: Denies pain. Neuro: Level of Consciousness is alert, obeys commands, Oriented to rk2 person, place, time, situation. Respiratory: Airway is patent Respiratory effort is even, unlabored, Respiratory pattern is regular, symmetrical. Derm: Skin is pink, warm \\T\\ dry. Historical: - Allergies: 15:38 No Known Allergies; aa5 - Home Meds: 15:38 metformin 500 mg Oral TG24 2 times per day [Active]; aa5 - PMHx: 15:38 Diabetes - NIDDM; aa5 - PSHx: 15:38 None; aa5 - Immunization history:: Adult Immunizations up to date. - Social history:: Smoking status: Patient uses tobacco products, smokes one-half pack cigarettes per day. - Ebola Screening: : No symptoms or risks identified at this time. Screenin:40 Abuse screen: Denies threats or abuse. rk2 15:40 Nutritional screening: No deficits noted. Tuberculosis screening: No symptoms or risk rk2 factors identified. Fall Risk None identified. Vital Signs: 15:38 BP 113 / 86; Pulse 72; Resp 16 S; Temp 97.8(TE); Pulse Ox 97% on R/A; Pain 0/10; aa5 ED Course: 15:21 Patient arrived in ED. sb2 15:21 None, None is Private Physician. sb2 15:28 Mohan Kay PA is PHCP. cp 15:28 Amos Vazquez MD is Attending Physician. cp 15:30 Veena Hayes, RN is Primary Nurse. rk2 15:37 Triage completed. aa5 15:38 Arm band placed on. aa5 15:40 Patient has correct armband on for positive identification. Bed in low position. Call rk2 light in reach. 15:57 No provider procedures requiring assistance completed. Patient did not have IV access rk2 during this emergency room visit. Administered Medications: No medications were administered Point of Care Testing: Blood Glucose: 15:37 Blood Glucose: 144 mg/dL; aa5 Ranges: Outcome: 15:47 Discharge ordered by . cp 15:57 Discharged to home ambulatory. rk2 15:57 Condition: good 15:57 Discharge instructions given to patient, Prescriptions given X 1. 16:01 Patient left the ED. rk2 Signatures: Bella Benson, RN RN aa5 Mohan Kay PA PA cp Veena Hayes, BERTIN RN rk2 Basilia Polk sb2
--- NOTE | 2017-08-01 15:48 | EDPHYS ---
Physician Documentation [facility] Name: Dany Sanchez Age: 36 yrs Sex: Male : 1980 Arrival Date: 08/01/2017 Time: 15:21 Bed 30 Private MD: None, None ED Physician Amos Vazquez HPI: 08/01 15:37 This 36 yrs old Male presents to ER via Unassigned with complaints of High cp Blood Sugar. 15:37 The patient or guardian reports hyperglycemia, that was potentially precipitated by cp eating. Patient reports he was concerned about elevated blood glucose today after eating. Patient reports he has history of NIDDM and take metformin 500 mg twice daily. Took last dose of metformin today. Is a patient at [facility]. Patient reports he called clinic and was told he can be seen tomorrow. No complaints of chest or abdomen pain. Historical: - Allergies: 15:38 No Known Allergies; aa5 - Home Meds: 15:38 metformin 500 mg Oral TG24 2 times per day [Active]; aa5 - PMHx: 15:38 Diabetes - NIDDM; aa5 - PSHx: 15:38 None; aa5 - Immunization history:: Adult Immunizations up to date. - Social history:: Smoking status: Patient uses tobacco products, smokes one-half pack cigarettes per day. - Ebola Screening: : No symptoms or risks identified at this time. ROS: 15:41 Endocrine: Positive for hyperglycemia. cp 15:41 All other systems are negative. Exam: 15:42 Head/Face: Normocephalic, atraumatic. cp 15:42 Constitutional: The patient appears in no acute distress, alert, awake, non-diaphoretic, non-toxic, well developed, well nourished. 15:42 Eyes: Periorbital structures: appear normal, Conjunctiva: normal, no exudate, no injection, Sclera: no appreciated abnormality, Lids and lashes: appear normal, bilaterally. 15:42 ENT: External ear(s): are unremarkable, Nose: is normal, Mouth: Lips: moist, Oral mucosa: pink and intact, moist, Posterior pharynx: is normal, airway is patent, no erythema, no exudate, Voice: is normal. 15:42 Neck: ROM/movement: is normal, is supple, without pain, no range of motions limitations, no nuchal rigidity, Lymph nodes: no appreciated lymphadenopathy. 15:42 Chest/axilla: Inspection: normal, Palpation: is normal, no crepitus, no tenderness. 15:42 Cardiovascular: Rate: normal, Rhythm: regular, Pulses: Edema: is not appreciated. 15:42 Respiratory: the patient does not display signs of respiratory distress, Respirations: normal, no use of accessory muscles, no retractions, no splinting, no tachypnea, labored breathing, is not present, Breath sounds: are clear throughout, no decreased breath sounds, no stridor, no wheezing. 15:42 Abdomen/GI: Inspection: abdomen appears normal, Bowel sounds: active, all quadrants, Palpation: abdomen is soft and non-tender, in all quadrants, rebound tenderness, is not appreciated, voluntary guarding, is not appreciated, involuntary guarding, is not appreciated. 15:42 Back: pain, is absent, ROM is normal. 15:42 Skin: cellulitis, is not appreciated, no rash present. 15:42 Neuro: Orientation: to person, place \T\ time. Mentation: is normal, Cerebellar function: is grossly normal, Motor: moves all fours, strength is normal, Sensation: is normal. Vital Signs: 15:38 BP 113 / 86; Pulse 72; Resp 16 S; Temp 97.8(TE); Pulse Ox 97% on R/A; Pain 0/10; aa5 MDM: 15:33 Patient medically screened. cp 15:35 Differential diagnosis: diabetes insipidus, DKA, hyperglycemia, hyperthyroidism, cp hypoglycemic episode, new onset diabetes. 15:45 Data reviewed: vital signs, nurses notes, lab test result(s), Accu-Check, and as a cp result, I will discharge patient. 15:45 Counseling: I had a detailed discussion with the patient and/or guardian regarding: the cp historical points, exam findings, and any diagnostic results supporting the discharge/admit diagnosis, lab results, the need for outpatient follow up, a family practitioner, to return to the emergency department if symptoms worsen or persist or if there are any questions or concerns that arise at home. Administered Medications: No medications were administered Point of Care Testing: Blood Glucose: 15:37 Blood Glucose: 144 mg/dL; aa5 Ranges: Critical Glucose Levels:Adult <50 mg/dl or >400 mg/dl <40 mg/dl or >180 mg/dl Disposition: 16:30 Chart complete. cp 18:44 Co-signature as Attending Physician, Amos Vazquez MD I agree with the assessment and rn plan of care. Disposition: 08/01/17 15:47 Discharged to Home. Impression: Diabetes mellitus due to underlying condition with hyperglycemia. - Condition is Stable. - Discharge Instructions: Type 2 Diabetes Mellitus, Adult, Diabetes Mellitus and Food. - Prescriptions for Metformin 500 mg Oral Tablet Sustained Release 24 hr - take 1 tablet by ORAL route 2 times per day with evening meal; 30 tablet. - Medication Reconciliation Form, Thank You Letter, Antibiotic Education, Prescription Opioid Use form. - Follow up: Private Physician; When: Tomorrow; Reason: reevaluation and refill of medication. - Problem is chronic. - Symptoms have improved. Signatures: Amos Vazquez MD MD rn Calderon, Audri RN RN aa5 Mohan Kay PA PA cp Kidder, Rhonda RN RN rk2 Corrections: (The following items were deleted from the chart) 15:49 15:47 08/01/2017 15:47 Discharged to Home. Impression: Diabetes mellitus due to cp underlying condition. Condition is Stable. Forms are Medication Reconciliation Form, Thank You Letter, Antibiotic Education, Prescription Opioid Use. Follow up: Private Physician; When: Tomorrow; Reason: reevaluation and refill of medication. Problem is chronic. Symptoms have improved. cp 16:01 15:49 08/01/2017 15:47 Discharged to Home. Impression: Diabetes mellitus due to rk2 underlying condition with hyperglycemia. Condition is Stable. Discharge Instructions: Type 2 Diabetes Mellitus, Adult, Diabetes Mellitus and Food. Prescriptions for Metformin 500 mg Oral Tablet Sustained Release 24 hr - take 1 tablet by ORAL route 2 times per day with evening meal; 30 tablet. and Forms are Medication Reconciliation Form, Thank You Letter, Antibiotic Education, Prescription Opioid Use. Follow up: Private Physician; When: Tomorrow; Reason: reevaluation and refill of medication. Problem is chronic. Symptoms have improved. cp
[2017-08-01 16:17] VITALS: BP 113/86; TEMP 97.8; O2SAT 97
== END 2017-08-01 16:01 | disposition home or self-care (01) ==
LOC: ER 15:16
DX: E11.65 Type 2 diabetes mellitus with hyperglycemia (principal); I10 Essential (primary) hypertension; F17.210 Nicotine dependence, cigarettes, uncomplicated
CPT/HCPCS: 82962; 99282

== ENCOUNTER 2017-08-05 14:29 | Emergency (ER) | payer SELFPAY ==
[2017-08-05] MEDS ORDERED: HYDROCODONE/APAP 5/325 MG TAB ONE (15:30)
[2017-08-05] MEDS ORDERED: DOXYCYCLINE 100 MG CAP PO ONE (15:31)
--- NOTE | 2017-08-05 15:54 | EDPHYS ---
Physician Documentation [facility] Name: Dany Sanchez Age: 36 yrs Sex: Male : 1980 Arrival Date: 08/05/2017 Time: 14:32 Bed 28 Private MD: None, None ED Physician Seth Krishnamurthy HPI: 08/05 16:11 This 36 yrs old Male presents to ER via Ambulatory with complaints of Abscess.snw 16:11 The patient presents with an abscess of the right gluteal fold. Description: swollen, snw tender x 2cm area. Onset: The symptoms/episode began/occurred suddenly, 2 day(s) ago. Possible cause(s): unknown. Associated signs and symptoms: Pertinent positives: tenderness. Severity of symptoms: At their worst the symptoms were mild, moderate. The patient has experienced similar episodes in the past, multiple times. It is unknown whether or not the patient has recently seen a physician. Historical: - Allergies: 14:42 No Known Allergies; hj - Home Meds: 14:42 metformin 500 mg Oral TG24 2 times per day [Active]; hj - PMHx: 14:42 Diabetes - NIDDM; hj - PSHx: 14:42 arm abscess; hj - Immunization history:: Adult Immunizations up to date. - Social history:: Smoking status: Patient uses tobacco products, smokes one pack cigarettes per day. Patient uses alcohol, occasionally. - Ebola Screening: : Patient negative for fever greater than or equal to 101.5 degrees Fahrenheit, and additional compatible Ebola Virus Disease symptoms Patient denies exposure to infectious person Patient denies travel to an Ebola-affected area in the 21 days before illness onset. ROS: 16:11 Constitutional: Negative for fever, chills, and weight loss, Eyes: Negative for injury, snw pain, redness, and discharge, ENT: Negative for injury, pain, and discharge, Neck: Negative for injury, pain, and swelling, Cardiovascular: Negative for chest pain, palpitations, and edema, Respiratory: Negative for shortness of breath, cough, wheezing, and pleuritic chest pain, Abdomen/GI: Negative for abdominal pain, nausea, vomiting, diarrhea, and constipation, Back: Negative for injury and pain, : Negative for injury, bleeding, discharge, and swelling, MS/Extremity: Negative for injury and deformity, Neuro: Negative for headache, weakness, numbness, tingling, and seizure, Psych: Negative for depression, anxiety, suicide ideation, homicidal ideation, and hallucinations. 16:11 Skin: Positive for abscess. Exam: 16:12 Constitutional: This is a well developed, well nourished patient who is awake, alert, snw and in no acute distress. Head/Face: Normocephalic, atraumatic. Eyes: Pupils equal round and reactive to light, extra-ocular motions intact. Lids and lashes normal. Conjunctiva and sclera are non-icteric and not injected. Cornea within normal limits. Periorbital areas with no swelling, redness, or edema. ENT: Nares patent. No nasal discharge, no septal abnormalities noted. Tympanic membranes are normal and external auditory canals are clear. Oropharynx with no redness, swelling, or masses, exudates, or evidence of obstruction, uvula midline. Mucous membranes moist. Neck: Trachea midline, no thyromegaly or masses palpated, and no cervical lymphadenopathy. Supple, full range of motion without nuchal rigidity, or vertebral point tenderness. No Meningismus. Chest/axilla: Normal chest wall appearance and motion. Nontender with no deformity. No lesions are appreciated. Cardiovascular: Regular rate and rhythm with a normal S1 and S2. No gallops, murmurs, or rubs. Normal PMI, no JVD. No pulse deficits. Respiratory: Lungs have equal breath sounds bilaterally, clear to auscultation and percussion. No rales, rhonchi or wheezes noted. No increased work of breathing, no retractions or nasal flaring. Abdomen/GI: Soft, non-tender, with normal bowel sounds. No distension or tympany. No guarding or rebound. No evidence of tenderness throughout. Back: No spinal tenderness. No costovertebral tenderness. Full range of motion. MS/ Extremity: Pulses equal, no cyanosis. Neurovascular intact. Full, normal range of motion. Neuro: Awake and alert, GCS 15, oriented to person, place, time, and situation. Cranial nerves II-XII grossly intact. Motor strength 5/5 in all extremities. Sensory grossly intact. Cerebellar exam normal. Normal gait. Psych: Awake, alert, with orientation to person, place and time. Behavior, mood, and affect are within normal limits. 16:12 Skin: Appearance: normal except for affected area, abscess, that is small, of the right gluteal fold, with induration. Vital Signs: 14:43 BP 126 / 83; Pulse 94; Resp 18; Temp 99.6(TE); Pulse Ox 97% on R/A; Weight 98.88 kg; hj Height 5 ft. 11 in. (180.34 cm); Pain 7/10; 14:43 Body Mass Index 30.40 (98.88 kg, 180.34 cm) hj MDM: 15:07 Patient medically screened. snw 16:13 Data reviewed: vital signs, nurses notes. Data interpreted: Pulse oximetry: on room air snw is 97 %. Interpretation: normal. Counseling: I had a detailed discussion with the patient and/or guardian regarding: the historical points, exam findings, and any diagnostic results supporting the discharge/admit diagnosis, the presence of at least one elevated blood pressure reading (>120/80) during this emergency department visit, the need for outpatient follow up, to return to the emergency department if symptoms worsen or persist or if there are any questions or concerns that arise at home. Special discussion: Based on the history and exam findings, there is no indication for further emergent testing or inpatient evaluation. I discussed with the patient/guardian the need to see the general surgeon for further evaluation of the symptoms. I discussed with the patient/guardian the need to see the primary care provider for further evaluation of the symptoms. Administered Medications: 15:32 Drug: Doxycycline 100 mg Route: PO; rk2 16:15 Follow up: Response: No adverse reaction rk2 15:32 Drug: [place] 5 mg-325 mg 1 tabs Route: PO; rk2 16:15 Follow up: Response: No adverse reaction rk2 Disposition: 17:29 Co-signature as Attending Physician, Seth Krishnamurthy MD I agree with the assessment and kdr plan of care. Disposition: 08/05/17 15:54 Discharged to Home. Impression: Cutaneous abscess of other sites - posterior thigh. - Condition is Stable. - Discharge Instructions: Abscess, Incision and Drainage, Sitz Bath. - Prescriptions for Hibiclens - wash 1 application by TOPICAL route 2 times per day; 240 Fluid Ounce. Bactroban 2 % Topical Ointment - apply 1 application by INTRANASAL route every 12 hours for 5 days; 15 gram. Doxycycline Hyclate 100 mg Oral Tablet - take 1 tablet by ORAL route every 12 hours; 20 tablet. Tramadol 50 mg Oral Tablet - take 1 tablet by ORAL route every 8 hours as needed; 12 tablet. - Medication Reconciliation Form, Thank You Letter, Antibiotic Education, Prescription Opioid Use form. - Follow up: Private Physician; When: 2 - 3 days; Reason: Recheck today's complaints, Continuance of care, Re-evaluation by your physician. Follow up: Emergency Department; When: As needed; Reason: Worsening of condition. Signatures: Seth Krishnamurthy MD MD [facility] Liv Wong, TERRIE-C STORAGE ENGINEER-Cs[employer] Kevin Mars RN RN hj Veena Hayes RN RN rk2 Corrections: (The following items were deleted from the chart) 16:17 15:54 08/05/2017 15:54 Discharged to Home. Impression: Cutaneous abscess of other sites rk2 - posterior thigh. Condition is Stable. Forms are Medication Reconciliation Form, Thank You Letter, Antibiotic Education, Prescription Opioid Use. Follow up: Private Physician; When: 2 - 3 days; Reason: Recheck today's complaints, Continuance of care, Re-evaluation by your physician. Follow up: Emergency Department; When: As needed; Reason: Worsening of condition. snw
--- NOTE | 2017-08-05 15:54 | ER ---
Nurse's Notes [facility] Name: Dany Sanchez Age: 36 yrs Sex: Male : 1980 Arrival Date: 08/05/2017 Time: 14:32 Bed 28 Private MD: None, None Diagnosis: Cutaneous abscess of other sites-posterior thigh Presentation: 08/05 14:40 Presenting complaint: Patient states: i noticed a boil on my R upper thigh near my hj buttocks for a couple of days now, denies fever and chills;. Transition of care: patient was not received from another setting of care. Onset of symptoms was August 05, 2017. Risk Assessment: Do you want to hurt yourself or someone else? Patient reports no desire to harm self or others. Initial Sepsis Screen: Does the patient meet any 2 criteria? No. Patient's initial sepsis screen is negative. Does the patient have a suspected source of infection? No. Patient's initial sepsis screen is negative. Care prior to arrival: None. 14:40 Method Of Arrival: Ambulatory 14:40 Acuity: DARIN 4 hj Triage Assessment: 14:42 General: Appears in no apparent distress. uncomfortable, Behavior is calm, cooperative, hj appropriate for age. Pain: Complains of pain in right gluteal fold. Historical: - Allergies: 14:42 No Known Allergies; hj - Home Meds: 14:42 metformin 500 mg Oral TG24 2 times per day [Active]; hj - PMHx: 14:42 Diabetes - NIDDM; hj - PSHx: 14:42 arm abscess; hj - Immunization history:: Adult Immunizations up to date. - Social history:: Smoking status: Patient uses tobacco products, smokes one pack cigarettes per day. Patient uses alcohol, occasionally. - Ebola Screening: : Patient negative for fever greater than or equal to 101.5 degrees Fahrenheit, and additional compatible Ebola Virus Disease symptoms Patient denies exposure to infectious person Patient denies travel to an Ebola-affected area in the 21 days before illness onset. Screenin:42 Abuse screen: Denies threats or abuse. Denies injuries from another. Nutritional hj screening: No deficits noted. Tuberculosis screening: No symptoms or risk factors identified. Fall Risk None identified. Assessment: 15:07 General: Appears in no apparent distress. well groomed, well developed, well nourished, rk2 Behavior is calm, cooperative, appropriate for age. Pain: Complains of pain in buttocks and right gluteal fold. Neuro: Level of Consciousness is alert, obeys commands, Oriented to person, place, time, situation. Respiratory: Airway is patent Respiratory effort is even, unlabored, Respiratory pattern is regular, symmetrical. Derm: Skin is pink, warm \T\ dry. Vital Signs: 14:43 BP 126 / 83; Pulse 94; Resp 18; Temp 99.6(TE); Pulse Ox 97% on R/A; Weight 98.88 kg; hj Height 5 ft. 11 in. (180.34 cm); Pain 7/10; 14:43 Body Mass Index 30.40 (98.88 kg, 180.34 cm) hj ED Course: 14:32 Patient arrived in ED. mr 14:32 None, None is Private Physician. mr 14:41 Triage completed. hj 14:43 Arm band placed on left wrist. hj 14:44 Patient has correct armband on for positive identification. Bed in low position. Side hj rails up X 1. 14:58 Veena Hayes, BERTIN is Primary Nurse. rk2 15:01 [facility] snw 15:01 Seth Krishnamurthy MD is Attending Physician. snw 16:16 No provider procedures requiring assistance completed. Patient did not have IV access rk2 during this emergency room visit. Administered Medications: 15:32 Drug: Doxycycline 100 mg Route: PO; rk2 16:15 Follow up: Response: No adverse reaction rk2 15:32 Drug: [place] 5 mg-325 mg 1 tabs Route: PO; rk2 16:15 Follow up: Response: No adverse reaction rk2 Outcome: 15:54 Discharge ordered by . snw 16:16 Discharged to home ambulatory. rk2 16:16 Condition: good 16:16 Discharge instructions given to patient, Prescriptions given X 4. 16:17 Patient left the ED. rk2 Signatures: Liv Wong FNP-C FNP-Simin Tirado JeradKevin RN RN Veena Hayes RN RN rk2 Corrections: (The following items were deleted from the chart) 15:19 14:40 Presenting complaint: Patient states: i noticed a boil on my R upper thigh near hj my buttocks for a couple of days ago, denies fever and chills; hj
[2017-08-05 16:51] VITALS: BP 126/83; TEMP 99.6; O2SAT 97
== END 2017-08-05 16:17 | disposition home or self-care (01) ==
LOC: ER 14:29
DX: L02.415 Cutaneous abscess of right lower limb (principal); L02.31 Cutaneous abscess of buttock; E11.9 Type 2 diabetes mellitus without complications; Z79.84 Long term (current) use of oral hypoglycemic drugs; F17.210 Nicotine dependence, cigarettes, uncomplicated
CPT/HCPCS: 99283

== ENCOUNTER 2017-12-01 18:50 | Emergency (ER) | payer SELFPAY ==
[2017-12-01] MEDS ORDERED: TETANUS & DIPHTHERIA TOX,ADULT 0.5 ML VIAL ONE (19:30)
--- NOTE | 2017-12-01 20:10 | RAD REPORT ---
EXAM DESCRIPTION: RAD - Hand Right 3 View - 12/01/2017 7:49 pm CLINICAL HISTORY: Blunt force trauma fourth digit, hand pain COMPARISON: None. FINDINGS: The fourth distal phalanx tuft is fractured with 1 millimeter ventral displacement. Soft t issue injury is present as well. No foreign body. Hand is otherwise unremarkable. IMPRESSION: Fractured tuft distal fourth phalanx.
[2017-12-01] MEDS ORDERED: LIDOCAINE 1% MPF 5 ML VIAL ONE (21:08)
--- NOTE | 2017-12-01 21:45 | ER ---
Nurse's Notes [facility] Name: Dany Sanchez Age: 36 yrs Sex: Male : 1980 Arrival Date: 12/01/2017 Time: 18:52 Bed 20 Private MD: Diagnosis: Laceration without foreign body of right ring finger with damage to nail;Fourth distal phalanx tuft fracture Presentation: 12/01 18:58 Presenting complaint: Patient states: slammed right 4th digit in house door at 1700 ak1 tonight. Transition of care: patient was not received from another setting of care. Onset of symptoms was December 01, 2017. Risk Assessment: Do you want to hurt yourself or someone else? Patient reports no desire to harm self or others. Initial Sepsis Screen: Does the patient meet any 2 criteria? No. Patient's initial sepsis screen is negative. Does the patient have a suspected source of infection? No. Patient's initial sepsis screen is negative. Care prior to arrival: None. 18:58 Method Of Arrival: Ambulatory ak1 18:58 Acuity: DARIN 4 ak1 Triage Assessment: 18:59 General: Appears in no apparent distress. Behavior is calm, cooperative. ak1 Historical: - Allergies: 18:59 No Known Allergies; ak1 - Home Meds: 18:59 metformin 500 mg Oral TG24 2 times per day [Active]; ak1 - PMHx: 18:59 Diabetes - NIDDM; ak1 - PSHx: 18:59 None; ak1 - Immunization history:: Adult Immunizations unknown, Last tetanus immunization: unknown. - Social history:: Smoking status: Patient uses tobacco products, smokes one pack cigarettes per day. - Ebola Screening: : No symptoms or risks identified at this time. Screenin:00 Abuse screen: Denies threats or abuse. Nutritional screening: No deficits noted. jb4 Tuberculosis screening: No symptoms or risk factors identified. Fall Risk None identified. Assessment: 19:00 General: Appears in no apparent distress. comfortable, Behavior is calm, cooperative, jb4 appropriate for age. Pain: Denies pain. Neuro: Level of Consciousness is awake, alert, obeys commands, Oriented to person, place, time, situation. Cardiovascular: Patient's skin is warm and dry. Respiratory: Airway is patent Respiratory effort is even, unlabored, Respiratory pattern is regular, symmetrical. GI: No signs and/or symptoms were reported involving the gastrointestinal system. : No signs and/or symptoms were reported regarding the genitourinary system. EENT: No signs and/or symptoms were reported regarding the EENT system. Derm: Skin is intact, Skin is dry, Skin is normal, Skin temperature is warm. Musculoskeletal: Circulation, motion, and sensation intact. Reports numbness in dorsal aspect of distal phalanx of right ring finger. 20:07 Reassessment: Patient appears in no apparent distress at this time. Patient and/or jb4 family updated on plan of care and expected duration. Pain level reassessed. Patient is alert, oriented x 3, equal unlabored respirations, skin warm/dry/pink. 21:00 Reassessment: Patient appears in no apparent distress at this time. Patient and/or jb4 family updated on plan of care and expected duration. Pain level reassessed. Patient is alert, oriented x 3, equal unlabored respirations, skin warm/dry/pink. 22:05 Reassessment: Patient appears in no apparent distress at this time. Patient and/or jb4 family updated on plan of care and expected duration. Pain level reassessed. Patient is alert, oriented x 3, equal unlabored respirations, skin warm/dry/pink. Pt is on shot time before discharge. 22:20 Reassessment: Patient appears in no apparent distress at this time. Patient and/or jb4 family updated on plan of care and expected duration. Pain level reassessed. Patient is alert, oriented x 3, equal unlabored respirations, skin warm/dry/pink. Discussed D/c, F/u with pt, Denies questions or concerns. Vital Signs: 18:59 BP 129 / 111; Pulse 88; Resp 18; Temp 98.5; Pulse Ox 99% on R/A; Weight 98.88 kg (R); ak1 Height 5 ft. 9 in. (175.26 cm) (R); Pain 2/10; 20:07 BP 138 / 91; Pulse 89; Resp 18; Pulse Ox 99% on R/A; jb4 21:41 BP 119 / 72; Pulse 86; Resp 16; Pulse Ox 98% on R/A; jb4 18:59 Body Mass Index 32.19 (98.88 kg, 175.26 cm) ak1 ED Course: 18:52 Patient arrived in ED. as 18:58 Triage completed. ak1 18:59 Arm band placed on Patient placed in an exam room, on a stretcher, Patient notified of ak1 wait time. 19:00 Patient has correct armband on for positive identification. Bed in low position. Call jb4 light in reach. Side rails up X 1. Pulse ox on. NIBP on. 19:02 Thomas Salas, BERTIN is Primary Nurse. jb4 19:04 Tony Lynn NP is PHCP. pm1 19:04 Seth Krishnamurthy MD is Attending Physician. pm1 19:49 Hand Right 3 View XRAY In Process Unspecified. EDMS 21:42 John Mckeon MD is Referral Physician. pm1 22:20 Assist provider with laceration repair on palmar aspect of distal phalanx of right ring jb4 finger that was 2.5 cm. or less using sutures. Set up tray. Performed by Tony Lynn IMMIGRATION PATROL INSPECTOR Dressed with 4X4s, Neosporin, Patient tolerated well. Patient did not have IV access during this emergency room visit. Administered Medications: 19:47 Drug: Tetanus-Diphtheria Toxoid Adult 0.5 ml {Natural Resources Professor: [employer]. Exp: jb4 02/01/2020. Lot #: [id number]. } Route: IM; Site: right deltoid; 20:57 Follow up: Response: No adverse reaction jb4 21:41 Drug: Lidocaine (1 %) 5 ml {Note: Administered by GUNJAN Lynn.} Volume: 5 ml; Route: jb4 Infiltration; 21:41 Follow up: Response: No adverse reaction jb4 21:55 Drug: Ancef 1 grams Route: IM; Site: right gluteus; jb4 22:09 Follow up: Response: No adverse reaction jb4 Outcome: 21:44 Discharge ordered by . pm1 22:20 Discharged to home ambulatory. jb4 22:20 Condition: stable 22:20 Discharge instructions given to patient, Instructed on discharge instructions, follow up and referral plans. medication usage, Demonstrated understanding of instructions, follow-up care, medications, Prescriptions given X 1. 22:24 Patient left the ED. jb4 Signatures: Dispatcher [employer] EDMS Alena Rankin Amber, RN RN ak1 Tony Lynn NP IMMIGRATION PATROL INSPECTOR pm1 Thomas Salas, RN RN jb4
--- NOTE | 2017-12-01 21:45 | EDPHYS ---
Physician Documentation [facility] Name: Dany Sanchez Age: 36 yrs Sex: Male : 1980 Arrival Date: 12/01/2017 Time: 18:52 Bed 20 Private MD: ED Physician Seth Krishnamurthy HPI: 12/01 20:20 This 36 yrs old Male presents to ER via Ambulatory with complaints of Right pm1 Fourth Finger Injury. 20:21 The patient or guardian reports pain. The complaints affect the dorsal aspect of distal pm1 phalanx of right ring finger and palmar aspect of distal phalanx of right ring finger. Context: The problem was sustained at home, resulted from Door slammed on right fourth finger. Onset: The symptoms/episode began/occurred just prior to arrival, today. Modifying factors: The symptoms are alleviated by nothing, the symptoms are aggravated by nothing. Associated signs and symptoms: Pertinent negatives: cyanosis distally, decreased sensation distally, numbness distally, tingling distally. Severity of symptoms: in the emergency department the symptoms are unchanged. The patient has not experienced similar symptoms in the past. The patient has not recently seen a physician. Historical: - Allergies: 18:59 No Known Allergies; ak1 - Home Meds: 18:59 metformin 500 mg Oral TG24 2 times per day [Active]; ak1 - PMHx: 18:59 Diabetes - NIDDM; ak1 - PSHx: 18:59 None; ak1 - Immunization history:: Adult Immunizations unknown, Last tetanus immunization: unknown. - Social history:: Smoking status: Patient uses tobacco products, smokes one pack cigarettes per day. - Ebola Screening: : No symptoms or risks identified at this time. ROS: 20:21 Constitutional: Negative for fever, chills, and weight loss, Eyes: Negative for injury, pm1 pain, redness, and discharge, ENT: Negative for injury, pain, and discharge, Neck: Negative for injury, pain, and swelling, Cardiovascular: Negative for chest pain, palpitations, and edema, Respiratory: Negative for shortness of breath, cough, wheezing, and pleuritic chest pain, Abdomen/GI: Negative for abdominal pain, nausea, vomiting, diarrhea, and constipation, Back: Negative for injury and pain. 20:21 Skin: Negative for injury, rash, and discoloration, Neuro: Negative for headache, weakness, numbness, tingling, and seizure. 20:21 MS/extremity: Positive for pain, of the palmar aspect of distal phalanx of right ring finger and dorsal aspect of distal phalanx of right ring finger, Laceration to dorsal aspect of distal phalanx of right ring finger. Exam: 20:21 Constitutional: This is a well developed, well nourished patient who is awake, alert, pm1 and in no acute distress. Head/Face: Normocephalic, atraumatic. Eyes: Pupils equal round and reactive to light, extra-ocular motions intact. Lids and lashes normal. Conjunctiva and sclera are non-icteric and not injected. Cornea within normal limits. Periorbital areas with no swelling, redness, or edema. ENT: Nares patent. No nasal discharge, no septal abnormalities noted. Tympanic membranes are normal and external auditory canals are clear. Oropharynx with no redness, swelling, or masses, exudates, or evidence of obstruction, uvula midline. Mucous membranes moist. Neck: Trachea midline, no thyromegaly or masses palpated, and no cervical lymphadenopathy. Supple, full range of motion without nuchal rigidity, or vertebral point tenderness. No Meningismus. Chest/axilla: Normal chest wall appearance and motion. Nontender with no deformity. No lesions are appreciated. Cardiovascular: Regular rate and rhythm with a normal S1 and S2. No gallops, murmurs, or rubs. Normal PMI, no JVD. No pulse deficits. Respiratory: Lungs have equal breath sounds bilaterally, clear to auscultation and percussion. No rales, rhonchi or wheezes noted. No increased work of breathing, no retractions or nasal flaring. Abdomen/GI: Soft, non-tender, with normal bowel sounds. No distension or tympany. No guarding or rebound. No evidence of tenderness throughout. Back: No spinal tenderness. No costovertebral tenderness. Full range of motion. 20:21 MS/ Extremity: Pulses equal, no cyanosis. Neurovascular intact. Full, normal range of motion. 20:21 Skin: Appearance: normal except for affected area, injury, laceration(s), the wound is approximately 1 cm(s), with a depth of 0.3 cm(s), of the dorsal aspect of distal phalanx of right ring finger, that can be described as clean, no foreign body, linear, Gaping 3 mm. 20:21 Neuro: Orientation: is normal, Motor: is normal, moves all fours, Sensation: is normal, no obvious gross deficits, Gait: is steady, at a normal pace, without difficulty. Vital Signs: 18:59 BP 129 / 111; Pulse 88; Resp 18; Temp 98.5; Pulse Ox 99% on R/A; Weight 98.88 kg (R); ak1 Height 5 ft. 9 in. (175.26 cm) (R); Pain 2/10; 20:07 BP 138 / 91; Pulse 89; Resp 18; Pulse Ox 99% on R/A; jb4 21:41 BP 119 / 72; Pulse 86; Resp 16; Pulse Ox 98% on R/A; jb4 18:59 Body Mass Index 32.19 (98.88 kg, 175.26 cm) ak1 Laceration: 22:01 Wound Repair of 1cm ( 0.4in ) subcutaneous laceration to dorsal aspect of distal pm1 phalanx of right ring finger. Linear shaped.. Distal neuro/vascular/tendon intact. Anesthesia: Digital block administered with 2 mls of 1% lidocaine. Wound prep: Extensive cleansing with betadine by nurse, Wound irrigation with saline by me, Wound explored extensively, Copious irrigation. Skin closed with 4 5-0 Prolene using simple sutures and sterile technique. Dressed with tube gauze, finger splint. Patient tolerated well. MDM: 19:04 Patient medically screened. pm1 21:41 Data reviewed: vital signs. Data interpreted: Pulse oximetry: on room air is 99 %. pm1 Interpretation: normal. Counseling: I had a detailed discussion with the patient and/or guardian regarding: the historical points, exam findings, and any diagnostic results supporting the discharge/admit diagnosis, radiology results, the need for outpatient follow up, a hand specialist, to return to the emergency department if symptoms worsen or persist or if there are any questions or concerns that arise at home. 12/01 19:15 Order name: Hand Right 3 View XRAY; Complete Time: 20:13 pm1 12/01 20:23 Order name: Wound Care; Complete Time: 20:57 pm1 12/01 21:02 Order name: Prolene, Sutures; Complete Time: 21:07 pm1 12/01 21:02 Order name: Dressing - Wound; Complete Time: 22:20 pm1 12/01 21:02 Order name: Gloves, Sterile; Complete Time: 21:07 pm1 12/01 21:02 Order name: Setup Suture Tray; Complete Time: 21:07 pm1 12/01 21:51 Order name: Splint - Finger; Complete Time: 22:09 pm1 Administered Medications: 19:47 Drug: Tetanus-Diphtheria Toxoid Adult 0.5 ml {Urogynaecologist: [facility]. Exp: jb4 02/01/2020. Lot #: [id number]. } Route: IM; Site: right deltoid; 20:57 Follow up: Response: No adverse reaction jb4 21:41 Drug: Lidocaine (1 %) 5 ml {Note: Administered by GUNJAN Lynn.} Volume: 5 ml; Route: jb4 Infiltration; 21:41 Follow up: Response: No adverse reaction jb4 21:55 Drug: Ancef 1 grams Route: IM; Site: right gluteus; jb4 22:09 Follow up: Response: No adverse reaction jb4 Disposition: 12/02 06:22 Co-signature as Attending Physician, Seth Krishnamurthy MD I agree with the assessment and kdr plan of care. Disposition: 12/01/17 21:44 Discharged to Home. Impression: Laceration without foreign body of right ring finger with damage to nail, Fourth distal phalanx tuft fracture. - Condition is Stable. - Discharge Instructions: Finger Fracture, Laceration Care, Adult. - Prescriptions for Keflex 500 mg Oral Capsule - take 1 capsule by ORAL route every 12 hours for 10 days; 20 capsule. - Medication Reconciliation Form, Thank You Letter, Antibiotic Education, Work release form form. - Follow up: Emergency Department; When: As needed; Reason: Worsening of condition. Follow up: John Mckeon MD; When: 2 - 3 days; Reason: Recheck today's complaints, Continuance of care, Re-evaluation by your physician. - Problem is new. - Symptoms have improved. Signatures: Dispatcher [employer] EDMS Seth Krishnamurthy MD MD [facility] Jacki Kumar RN RN ak1 Tony Lynn NP POTATO PANCAKE FRIER pm1 Thomas Salas RN RN jb4 Corrections: (The following items were deleted from the chart) 10/19 22:24 21:44 12/01/2017 21:44 Discharged to Home. Impression: Laceration without foreign body jb4 of right ring finger with damage to nail; Fourth distal phalanx tuft fracture. Condition is Stable. Forms are Medication Reconciliation Form, Thank You Letter, Antibiotic Education, Prescription Opioid Use. Follow up: Emergency Department; When: As needed; Reason: Worsening of condition. Follow up: John Mckeon; When: 2 - 3 days; Reason: Recheck today's complaints, Continuance of care, Re-evaluation by your physician. Problem is new. Symptoms have improved. pm1
[2017-12-01] MEDS ORDERED: CEFAZOLIN SODIUM 1 GM/VIAL ONE (21:52)
[2017-12-01 22:29] VITALS: TEMP 98.5
[2017-12-01 22:32] VITALS: BP 119/72; O2SAT 98
== END 2017-12-01 22:24 | disposition home or self-care (01) ==
LOC: ER 18:50
PROC: 0JQJ0ZZ Repair Right Hand Subcutaneous Tissue and Fascia, Open Approach (ICD-10-PCS; principal; 2017-12-01)
DX: S62.634A Displaced fracture of distal phalanx of right ring finger, initial encounter for closed fracture (principal); S61.214A Laceration without foreign body of right ring finger without damage to nail, initial encounter; W23.0XXA Caught, crushed, jammed, or pinched between moving objects, initial encounter; Y93.9 Activity, unspecified; Y92.009 Unspecified place in unspecified non-institutional (private) residence as the place of occurrence of the external cause; E11.9 Type 2 diabetes mellitus without complications; Z23 Encounter for immunization
CPT/HCPCS: 90714; 96372; 99284; J0690